=== PATIENT | male | born 1940 | race Caucasian/White ===

== ENCOUNTER → 2016-09-25 | Outpatient (CLI) | payer OTHER ==
[~2016-09-25] VITALS: Ht 170.2 cm; Wt 79.4 kg
[~2016-09-25] MED LIST: ASPIR-LOW81 MG PO; DILTIAZEM 24HR180 MG PO; DOXAZOSIN MESYLA8 MG PO; IRON325 M1 PO; LASIX20 MG PO; LINZESS145 MCG PO; PREDNISONE10 MG PO; PROTONIX20 MG PO; PROTONIX40 MG PO; SPIRIVA1 INHALATI IH; SYMBICORT60 INHALAT IH
== END | disposition home or self-care (01) ==
LOC: AMB 12:42
PROC: 0D568ZZ Destruction of Stomach, Via Natural or Artificial Opening Endoscopic (ICD-10-PCS; principal; 2016-09-25)
DX: I86.4 Gastric varices (principal); I10 Essential (primary) hypertension; J44.9 Chronic obstructive pulmonary disease, unspecified; K21.9 Gastro-esophageal reflux disease without esophagitis
CPT/HCPCS: J3010

== ENCOUNTER 2016-10-24 13:47 | Inpatient (IN) | payer OTHER ==
[2016-10-24] VITALS (10 sets, daily range): BP systolic 142–170; BP diastolic 55–79
[~2016-10-24] VITALS: Ht 170.2 cm; Wt 86.0 kg
[2016-10-24 15:49] LABS: EOSINOPHIL (%) 1.5 % (0-5); EOSINOPHIL COUNT 0.1 K/uL (0-0.3); HEMATOCRIT 24.7 % (38.0-50.0); IMMATURE GRANULOCYTE (%) 0.5 % (0.0-0.7); INSTRUMENT ABS NEUTROPHIL CT 4.7 K/uL; LYMPHOCYTE COUNT 0.6 K/uL (1.0-2.8); MCH 22.1 PG (29.0-34.0); MCHC 28.3 G/DL (30.0-36.0); MCV 77.9 FL (86-99); MEAN PLAT.VOLUME 9.9 uM^3 (9.0-12.4); MONOCYTE (%) 8.8 % (3-12); MONOCYTE COUNT 0.5 K/uL (0-0.8); NEUTROPHIL (%) 78.4 % (45-76); NEUTROPHIL COUNT 4.7 K/uL (1.8-6.4); NRBC (%) 0.3 /100 WBC (0-0); PLATELET COUNT 253 K/uL (156-360); RBC DIS.WIDTH-CV 17.3 % (11.8-14.6); RBC DIS.WIDTH-SD 49.7 % (39-53); RED BLOOD COUNT 3.17 M/uL (4.00-5.50); WHITE BLOOD COUNT 5.9 K/uL (4.1-10.2)
[2016-10-24 16:15] LABS: CHLORIDE 95 mEq/L (99-109); POTASSIUM 4.9 mEq/L (3.7-5.4); SODIUM 136 mEq/L (136-147)
[2016-10-24 16:18] LABS: ANION GAP 13 MEQ/L (2-14); GLUCOSE 201 mg/dL (70-99)
[2016-10-24 16:19] LABS: TOTAL BILIRUBIN 0.3 mg/dL (0.0-1.0)
[2016-10-24 16:20] LABS: ALKALINE PHOSPHATASE 81 IU/L (3-129)
[2016-10-24 16:21] LABS: GFR ESTIMATE (CALCULATED) 52 mL/min/
[2016-10-24 16:22] LABS: UREA NITROGEN (BUN) 22 mg/dL (9-23)
[2016-10-24 16:24] LABS: LIPASE 17 U/L (1.0-51.0)
[2016-10-24] MEDS ORDERED: STOOL SOFTENER100 M1 PO (16:58)
[2016-10-25 00:18] VITALS: BP 172/75
[2016-10-25 00:44] LABS: HEMATOCRIT 26.8 % (38.0-50.0); MCV 79.5 FL (86-99)
[2016-10-25 05:29] LABS: HEMATOCRIT 27.4 % (38.0-50.0); MCV 80.8 FL (86-99)
[2016-10-25 05:58] LABS: ALKALINE PHOSPHATASE 69 IU/L (3-129); ANION GAP 4 MEQ/L (2-14); CHLORIDE 97 MEQ/L (99-109); GFR ESTIMATE (CALCULATED) > 59 mL/min/; POTASSIUM 4.9 MEQ/L (3.7-5.4); SAMPLE HEMOLYSIS CHECK 0; SAMPLE ICTERIC CHECK 0; SAMPLE LIPEMIA CHECK 0; SODIUM 139 MEQ/L (136-147); TOTAL BILIRUBIN 0.4 MG/DL (0.0-1.0); UREA NITROGEN (BUN) 21 mg/dL (9-23)
[2016-10-25 05:59] LABS: GLUCOSE 114 mg/dL (70-99)
[2016-10-25 08:47] VITALS: BP 166/72
[2016-10-25 09:12] LABS: TROP-I INTERPRETATION NEGATIVE; TROPONIN-I 0.03 ng/mL (0.0-0.30)
[2016-10-25 12:22] LABS: HEMATOCRIT 30.1 % (38.0-50.0); MCV 81.1 FL (86-99)
[2016-10-25 15:56] VITALS: BP 157/71
[2016-10-25 17:11] LABS: HEMATOCRIT 29.4 % (38.0-50.0); MCV 80.8 FL (86-99)
[2016-10-25 17:18] LABS: INTER. NORMALIZED RATIO 1.1; PROTHROMBIN TIME 10.7 (9.2-11.2); PTT 26.9 (25-32)
[2016-10-25 23:34] VITALS: BP 161/67
[2016-10-26 06:56] LABS: HEMATOCRIT 29.3 % (38.0-50.0); MCH 23.1 PG (29.0-34.0); MCHC 28.3 G/DL (30.0-36.0); MCV 81.6 FL (86-99); MEAN PLAT.VOLUME 9.3 uM^3 (9.0-12.4); PLATELET COUNT 212 K/uL (156-360); RBC DIS.WIDTH-CV 18.6 % (11.8-14.6); RBC DIS.WIDTH-SD 55.4 % (39-53); RED BLOOD COUNT 3.59 M/uL (4.00-5.50)
[2016-10-26 07:31] VITALS: BP 140/74
[2016-10-26 07:34] LABS: ANION GAP 8 MEQ/L (2-14); CHLORIDE 92 MEQ/L (99-109); GFR ESTIMATE (CALCULATED) > 59 mL/min/; GLUCOSE 90 mg/dL (70-99); POTASSIUM 4.6 MEQ/L (3.7-5.4); SAMPLE HEMOLYSIS CHECK 0; SAMPLE ICTERIC CHECK 0; SAMPLE LIPEMIA CHECK 0; SODIUM 139 MEQ/L (136-147); UREA NITROGEN (BUN) 23 mg/dL (9-23)
[2016-10-26 11:16] VITALS: BP 140/70
[2016-10-26 13:45] LABS: TYPE OF FLUID PLEURAL
[2016-10-26 14:05] LABS: BODY FLUID LDH 89 IU/L
[2016-10-26 14:06] LABS: HEMATOCRIT 31.2 % (38.0-50.0)
[2016-10-26 14:33] LABS: BODY FLUID EOSINOPHILS 0 % (0-25); BODY FLUID RBC'S 2000 /MM^3 (0-100); BODY FLUID WBC'S 344 /MM^3 (0-500); MONONUCLEAR WBC'S 86 %; POLYNUCLEAR WBC'S 14 % (0-25)
[2016-10-26 17:50] LABS: HEMATOCRIT 30.8 % (38.0-50.0); MCV 81.1 FL (86-99)
[2016-10-26 20:09] VITALS: BP 164/79
[2016-10-27] VITALS (14 sets, daily range): BP systolic 133–182; BP diastolic 63–86
[2016-10-27 00:24] LABS: HEMATOCRIT 26.4 % (38.0-50.0); MCV 78.1 FL (86-99)
[2016-10-27 07:02] LABS: HEMATOCRIT 25.5 % (38.0-50.0); MCH 22.9 PG (29.0-34.0); MCHC 29.4 G/DL (30.0-36.0); MEAN PLAT.VOLUME 9.8 uM^3 (9.0-12.4); PLATELET COUNT 201 K/uL (156-360); RBC DIS.WIDTH-CV 18.6 % (11.8-14.6); RBC DIS.WIDTH-SD 52.7 % (39-53); RED BLOOD COUNT 3.27 M/uL (4.00-5.50); WHITE BLOOD COUNT 5.4 K/uL (4.1-10.2)
[2016-10-27 07:31] LABS: ANION GAP ND MEQ/L (2-14); CARBON DIOXIDE (BICARBONATE) > 40.0 MEQ/L (20-31); CHLORIDE 91 MEQ/L (99-109); GFR ESTIMATE (CALCULATED) > 59 mL/min/; GLUCOSE 105 mg/dL (70-99); LACTATE DEHYDROGENASE 118 IU/L (20-246); POTASSIUM 3.9 MEQ/L (3.7-5.4); SAMPLE HEMOLYSIS CHECK 0; SAMPLE ICTERIC CHECK 0; SAMPLE LIPEMIA CHECK 0; SODIUM 137 MEQ/L (136-147); UREA NITROGEN (BUN) 24 mg/dL (9-23)
[2016-10-27 08:36] LABS: BASE EXCESS 16.8 mEq/L (-3 to +3); BICARBONATE 42.7 mEq/L (22-26); CARBOXY HGB 2.1 % (0-5); COMMENTS - BLOOD GASES A+C+; DEVICE NC; O2 FLOW 4 L/MIN; PCO2 60 mm Hg (35-45); PO2 59 mm Hg (80-100); SITE RRA; pH 7.46 (7.35-7.45)
[2016-10-27 08:37] LABS: TOTAL RESP RATE 16 resp/min
[2016-10-27 21:29] LABS: HEMATOCRIT 31.3 % (38.0-50.0); MCV 77.9 FL (86-99)
[2016-10-27 23:29] LABS: BODY FLUID PH 7.9 (())
[2016-10-28] VITALS: BP 170/68
[2016-10-28 00:26] LABS: HEMATOCRIT 33.1 % (38.0-50.0); MCV 77.3 FL (86-99)
[2016-10-28 07:23] VITALS: BP 171/72
[2016-10-28 07:37] LABS: HEMATOCRIT 32.7 % (38.0-50.0); MCV 77.9 FL (86-99)
[2016-10-28 13:09] LABS: HEMATOCRIT 34.5 % (38.0-50.0); MCV 78.1 FL (86-99)
[2016-10-28 15:25] VITALS: BP 144/72
[2016-10-28 18:31] LABS: HEMATOCRIT 34.8 % (38.0-50.0); MCV 77.5 FL (86-99)
[2016-10-28 23:39] VITALS: BP 170/80
[2016-10-29 00:36] LABS: HEMATOCRIT 33.6 % (38.0-50.0); MCV 76.5 FL (86-99)
[2016-10-29 05:58] LABS: HEMATOCRIT 32.6 % (38.0-50.0); MCV 77.1 FL (86-99)
[2016-10-29 07:48] VITALS: BP 177/77
[2016-10-29 11:42] LABS: HEMATOCRIT 34.6 % (38.0-50.0); MCV 78.1 FL (86-99)
[2016-10-29 15:05] VITALS: BP 140/66
[2016-10-29 18:05] LABS: HEMATOCRIT 36.2 % (38.0-50.0); MCV 77.8 FL (86-99)
[2016-10-30] VITALS: BP 165/74
[2016-10-30 00:44] LABS: MCV 77.3 FL (86-99)
[2016-10-30 07:23] LABS: ANION GAP 8 MEQ/L (2-14); CHLORIDE 92 MEQ/L (99-109); GFR ESTIMATE (CALCULATED) 42 mL/min/; GLUCOSE 176 mg/dL (70-99); POTASSIUM 4.1 MEQ/L (3.7-5.4); SAMPLE HEMOLYSIS CHECK 0; SAMPLE ICTERIC CHECK 0; SAMPLE LIPEMIA CHECK 0; SODIUM 133 MEQ/L (136-147); UREA NITROGEN (BUN) 31 mg/dL (9-23)
[2016-10-30 07:40] LABS: HEMATOCRIT 33.9 % (38.0-50.0)
[2016-10-30 07:55] VITALS: BP 157/74
[2016-10-30 11:35] VITALS: BP 165/79
[2016-10-30 13:56] LABS: HEMATOCRIT 35.6 % (38.0-50.0); MCV 78.2 FL (86-99)
[2016-10-30 14:14] LABS: ANION GAP 12 MEQ/L (2-14); CHLORIDE 93 MEQ/L (99-109); GFR ESTIMATE (CALCULATED) 52 mL/min/; GLUCOSE 150 mg/dL (70-99); POTASSIUM 3.8 MEQ/L (3.7-5.4); SAMPLE HEMOLYSIS CHECK 0; SAMPLE ICTERIC CHECK 0; SAMPLE LIPEMIA CHECK 0; SODIUM 136 MEQ/L (136-147); UREA NITROGEN (BUN) 30 mg/dL (9-23)
[2016-10-30 16:50] VITALS: BP 149/76
[2016-10-31 00:35] LABS: HEMATOCRIT 31.5 % (38.0-50.0); MCV 78.2 FL (86-99)
[2016-10-31 01:08] VITALS: BP 154/74
[2016-10-31 07:23] LABS: HEMATOCRIT 32.6 % (38.0-50.0); MCH 23.9 PG (29.0-34.0); MCHC 30.7 G/DL (30.0-36.0); MEAN PLAT.VOLUME 9.6 uM^3 (9.0-12.4); PLATELET COUNT 213 K/uL (156-360); RBC DIS.WIDTH-CV 19.7 % (11.8-14.6); RBC DIS.WIDTH-SD 54.2 % (39-53); WHITE BLOOD COUNT 5.6 K/uL (4.1-10.2)
[2016-10-31 07:29] LABS: ANION GAP 8 MEQ/L (2-14); CHLORIDE 95 MEQ/L (99-109); POTASSIUM 3.9 MEQ/L (3.7-5.4); SAMPLE HEMOLYSIS CHECK 0; SAMPLE ICTERIC CHECK 0; SAMPLE LIPEMIA CHECK 0; SODIUM 136 MEQ/L (136-147)
[2016-10-31 07:35] LABS: GFR ESTIMATE (CALCULATED) 57 mL/min/; GLUCOSE 142 mg/dL (70-99); UREA NITROGEN (BUN) 30 mg/dL (9-23)
[2016-10-31 08:17] VITALS: BP 164/72
[2016-10-31 08:17] LABS: RED BLOOD COUNT 4.18 M/uL (4.00-5.50)
[2016-10-31 12:45] LABS: HEMATOCRIT 35.3 % (38.0-50.0); MCV 79.1 FL (86-99)
[2016-10-31] MEDS ORDERED: AMOX TR-K CLV1 EAC4 PO (14:51)
[2016-10-31] MEDS ORDERED: AMLODIPINE BESYL5 MG PO (14:52)
[2016-10-31] MEDS ORDERED: THEOPHYLLINE400 MG PO (14:52)
[2016-10-31] MEDS ORDERED: PREDNISONE10 MG PO (14:54)
[2016-10-31 15:13] VITALS: BP 138/67
== END 2016-10-31 17:28 | disposition home or self-care (01) | DRG 811 ==
LOC: EME 13:47 → EDOF 18:41 → 5SOUTH 18:41 → EME 10-26 16:45 → 5SOUTH 10-31 17:28
PROVIDERS: Emergency Medicine; Internal Medicine; Internal Medicine Gastroenterology; Nurse Practitioner Adult Health; Physician Assistant Medical; Radiology Diagnostic Radiology
DX: D62 Acute posthemorrhagic anemia (principal); K31.811 Angiodysplasia of stomach and duodenum with bleeding; K25.9 Gastric ulcer, unspecified as acute or chronic, without hemorrhage or perforation; J44.1 Chronic obstructive pulmonary disease with (acute) exacerbation; J44.0 Chronic obstructive pulmonary disease with (acute) lower respiratory infection; J18.9 Pneumonia, unspecified organism; N17.9 Acute kidney failure, unspecified; J90 Pleural effusion, not elsewhere classified; I10 Essential (primary) hypertension; N40.0 Benign prostatic hyperplasia without lower urinary tract symptoms; K21.9 Gastro-esophageal reflux disease without esophagitis; Z66 Do not resuscitate; Z86.73 Personal history of transient ischemic attack (TIA), and cerebral infarction without residual deficits; Z87.891 Personal history of nicotine dependence; Z95.828 Presence of other vascular implants and grafts
CPT/HCPCS: 36415; 36600; 71010; 71020; 71275; 80048; 80048 91; 80053; 82040; 82803; 82945; 83615; 83615 91; 83690; 83986 90; 84075; 84157; 84484; 85014; 85018; 85025; 85025 91; 85027; 85610; 85730; 86850; 86900; 86901; 86920; 87070; 87075; 87116; 87205; 87206; 88108; 89051; 93005; 93306; 93971; 94640; 94640 76; 94799; 99202; 99281; 99285; C9113; J0696; J1940; J2405; J7040; J7050; J7120; J7512; P9016; P9040

== ENCOUNTER 2016-12-30 20:10 | Inpatient (IN) | payer OTHER ==
[~2016-12-30] VITALS: Ht 175.3 cm; Wt 80.6 kg
[~2016-12-30 20:10] MED LIST changes: +AMLODIPINE BESYL5 MG PO; +AMOX TR-K CLV1 EAC4 PO; +STOOL SOFTENER100 M1 PO; +THEOPHYLLINE400 MG PO
[2016-12-30 21:00] LABS: HEMATOCRIT 24.9 % (38.0-50.0); MCH 26.5 PG (29.0-34.0); MCHC 30.5 G/DL (30.0-36.0); MCV 86.8 FL (86-99); MEAN PLAT.VOLUME 9.8 uM^3 (9.0-12.4); PLATELET COUNT 198 K/uL (156-360); RBC DIS.WIDTH-CV 21.1 % (11.8-14.6); RBC DIS.WIDTH-SD 66.7 % (39-53); RED BLOOD COUNT 2.87 M/uL (4.00-5.50); WHITE BLOOD COUNT 5.9 K/uL (4.1-10.2)
[2016-12-30 21:07] LABS: EOSINOPHIL (%) 1.4 % (0-5); EOSINOPHIL COUNT 0.1 K/uL (0-0.3); IMMATURE GRANULOCYTE (%) 0.3 % (0.0-0.7); INSTRUMENT ABS NEUTROPHIL CT 4.6 K/uL; LYMPHOCYTE COUNT 0.5 K/uL (1.0-2.8); MONOCYTE (%) 10.8 % (3-12); MONOCYTE COUNT 0.6 K/uL (0-0.8); NEUTROPHIL (%) 78.2 % (45-76); NEUTROPHIL COUNT 4.6 K/uL (1.8-6.4)
[2016-12-30 21:09] LABS: CHLORIDE 94 mEq/L (99-109); POTASSIUM 3.9 mEq/L (3.7-5.4); SODIUM 134 mEq/L (136-147)
[2016-12-30 21:10] LABS: GLUCOSE 132 mg/dL (70-99)
[2016-12-30 21:12] LABS: ANION GAP 4 MEQ/L (2-14)
[2016-12-30 21:14] LABS: GFR ESTIMATE (CALCULATED) > 59 mL/min/
[2016-12-30 21:15] LABS: UREA NITROGEN (BUN) 21 mg/dL (9-23)
[2016-12-30 21:20] LABS: INTER. NORMALIZED RATIO 1.1; PROTHROMBIN TIME 11.1 (9.2-11.2); PTT 28.7 (25-32)
[2016-12-30 21:21] LABS: TROP-I INTERPRETATION NEGATIVE; TROPONIN-I 0.01 ng/mL (0.0-0.30)
[2016-12-30] MEDS ORDERED: COMBIVENT RESPIM4 GM IH (23:54)
[2016-12-30] MEDS ORDERED: VENTOLIN HFA18 GM IH (23:55)
[2016-12-31] VITALS (16 sets, daily range): BP systolic 127–189; BP diastolic 58–91
[2016-12-31 08:00] LABS: TROP-I INTERPRETATION NEGATIVE; TROPONIN-I 0.04 ng/mL (0.0-0.30)
[2016-12-31 09:12] LABS: ANION GAP 8 MEQ/L (2-14); CHLORIDE 98 MEQ/L (99-109); GFR ESTIMATE (CALCULATED) > 59 mL/min/; GLUCOSE 118 mg/dL (70-99); POTASSIUM 4.2 MEQ/L (3.7-5.4); SAMPLE HEMOLYSIS CHECK 0; SAMPLE ICTERIC CHECK 0; SAMPLE LIPEMIA CHECK 0; SODIUM 140 MEQ/L (136-147); UREA NITROGEN (BUN) 17 mg/dL (9-23)
[2016-12-31 09:49] LABS: INTERNAL CONTROL VALID? YES
[2016-12-31 13:20] LABS: HEMATOCRIT 30.5 % (38.0-50.0); MCH 27.1 PG (29.0-34.0); MCHC 30.8 G/DL (30.0-36.0); MCV 87.9 FL (86-99); PLATELET COUNT 204 K/uL (156-360); RBC DIS.WIDTH-CV 19.8 % (11.8-14.6); RBC DIS.WIDTH-SD 63.4 % (39-53); WHITE BLOOD COUNT 5.5 K/uL (4.1-10.2)
[2016-12-31 13:32] LABS: RED BLOOD COUNT 3.47 M/uL (4.00-5.50)
[2016-12-31 13:33] LABS: CHLORIDE 96 mEq/L (99-109); POTASSIUM 3.8 mEq/L (3.7-5.4); SODIUM 138 mEq/L (136-147)
[2016-12-31 13:36] LABS: ANION GAP 9 MEQ/L (2-14)
[2016-12-31 13:37] LABS: GLUCOSE 193 mg/dL (70-99)
[2016-12-31 13:39] LABS: GFR ESTIMATE (CALCULATED) > 59 mL/min/; UREA NITROGEN (BUN) 16 mg/dL (9-23)
[2017-01-01] VITALS (7 sets, daily range): BP systolic 148–176; BP diastolic 70–77
[2017-01-01 07:45] LABS: HEMATOCRIT 33.9 % (38.0-50.0); MCH 26.8 PG (29.0-34.0); MCHC 30.4 G/DL (30.0-36.0); MCV 88.1 FL (86-99); PLATELET COUNT 234 K/uL (156-360); RBC DIS.WIDTH-CV 19.4 % (11.8-14.6); RBC DIS.WIDTH-SD 62.8 % (39-53); RED BLOOD COUNT 3.85 M/uL (4.00-5.50); WHITE BLOOD COUNT 4.1 K/uL (4.1-10.2)
[2017-01-01 07:59] LABS: TROP-I INTERPRETATION NEGATIVE; TROPONIN-I 0.01 ng/mL (0.0-0.30)
[2017-01-01 08:26] LABS: ANION GAP 7 MEQ/L (2-14); CHLORIDE 97 MEQ/L (99-109); GFR ESTIMATE (CALCULATED) > 59 mL/min/; GLUCOSE 170 mg/dL (70-99); SAMPLE HEMOLYSIS CHECK 0; SAMPLE ICTERIC CHECK 0; SAMPLE LIPEMIA CHECK 0; SODIUM 140 MEQ/L (136-147); UREA NITROGEN (BUN) 15 mg/dL (9-23)
[2017-01-01 08:27] LABS: POTASSIUM 4.6 MEQ/L (3.7-5.4)
[2017-01-02 07:13] LABS: HEMATOCRIT 32.9 % (38.0-50.0); MCH 27.2 PG (29.0-34.0); MCHC 30.7 G/DL (30.0-36.0); MCV 88.7 FL (86-99); MEAN PLAT.VOLUME 10.2 uM^3 (9.0-12.4); PLATELET COUNT 247 K/uL (156-360); RBC DIS.WIDTH-CV 19.5 % (11.8-14.6); RBC DIS.WIDTH-SD 64.1 % (39-53); RED BLOOD COUNT 3.71 M/uL (4.00-5.50); WHITE BLOOD COUNT 5.9 K/uL (4.1-10.2)
[2017-01-02 07:14] VITALS: BP 176/72
[2017-01-02 07:40] LABS: ANION GAP 8 MEQ/L (2-14); CHLORIDE 97 MEQ/L (99-109); GFR ESTIMATE (CALCULATED) > 59 mL/min/; GLUCOSE 174 mg/dL (70-99); POTASSIUM 4.2 MEQ/L (3.7-5.4); SAMPLE HEMOLYSIS CHECK 0; SAMPLE ICTERIC CHECK 0; SAMPLE LIPEMIA CHECK 0; SODIUM 138 MEQ/L (136-147); UREA NITROGEN (BUN) 21 mg/dL (9-23)
[2017-01-02 15:16] VITALS: BP 161/72
[2017-01-03 00:22] VITALS: BP 166/77
[2017-01-03 07:23] LABS: EOSINOPHIL (%) 0 % (0-5); HEMATOCRIT 32.3 % (38.0-50.0); IMMATURE GRANULOCYTE (%) 0.8 % (0.0-0.7); IMMATURE GRANULOCYTE COUNT 0.1 K/uL; INSTRUMENT ABS NEUTROPHIL CT 6.7 K/uL; LYMPHOCYTE COUNT 0.2 K/uL (1.0-2.8); MCH 27.1 PG (29.0-34.0); MCHC 30.3 G/DL (30.0-36.0); MCV 89.2 FL (86-99); MEAN PLAT.VOLUME 10.1 uM^3 (9.0-12.4); MONOCYTE (%) 3.8 % (3-12); MONOCYTE COUNT 0.3 K/uL (0-0.8); NEUTROPHIL (%) 93.2 % (45-76); NEUTROPHIL COUNT 6.7 K/uL (1.8-6.4); PLATELET COUNT 248 K/uL (156-360); RBC DIS.WIDTH-CV 19.5 % (11.8-14.6); RBC DIS.WIDTH-SD 64.8 % (39-53); RED BLOOD COUNT 3.62 M/uL (4.00-5.50); WHITE BLOOD COUNT 7.2 K/uL (4.1-10.2)
[2017-01-03 08:01] LABS: ANION GAP 6 MEQ/L (2-14); CHLORIDE 97 MEQ/L (99-109); GFR ESTIMATE (CALCULATED) > 59 mL/min/; GLUCOSE 177 mg/dL (70-99); POTASSIUM 4.2 MEQ/L (3.7-5.4); SAMPLE HEMOLYSIS CHECK 0; SAMPLE ICTERIC CHECK 0; SAMPLE LIPEMIA CHECK 0; SODIUM 136 MEQ/L (136-147); UREA NITROGEN (BUN) 25 mg/dL (9-23)
[2017-01-03 08:06] VITALS: BP 171/76
[2017-01-03 15:57] VITALS: BP 184/82
[2017-01-03 22:53] VITALS: BP 156/69
[2017-01-04 06:37] LABS: EOSINOPHIL (%) 0 % (0-5); HEMATOCRIT 29.9 % (38.0-50.0); IMMATURE GRANULOCYTE (%) 1.2 % (0.0-0.7); IMMATURE GRANULOCYTE COUNT 0.1 K/uL; INSTRUMENT ABS NEUTROPHIL CT 5.8 K/uL; LYMPHOCYTE COUNT 0.1 K/uL (1.0-2.8); MCH 28.1 PG (29.0-34.0); MCHC 31.8 G/DL (30.0-36.0); MCV 88.5 FL (86-99); MEAN PLAT.VOLUME 10.3 uM^3 (9.0-12.4); MONOCYTE (%) 7.6 % (3-12); MONOCYTE COUNT 0.5 K/uL (0-0.8); NEUTROPHIL COUNT 5.8 K/uL (1.8-6.4); PLATELET COUNT 221 K/uL (156-360); RBC DIS.WIDTH-CV 19.6 % (11.8-14.6); RBC DIS.WIDTH-SD 63.7 % (39-53); RED BLOOD COUNT 3.38 M/uL (4.00-5.50); WHITE BLOOD COUNT 6.5 K/uL (4.1-10.2)
[2017-01-04 07:01] VITALS: BP 159/72
[2017-01-04 07:04] LABS: ANION GAP 6 MEQ/L (2-14); CHLORIDE 97 MEQ/L (99-109); GFR ESTIMATE (CALCULATED) > 59 mL/min/; GLUCOSE 189 mg/dL (70-99); POTASSIUM 4.5 MEQ/L (3.7-5.4); SAMPLE HEMOLYSIS CHECK 0; SAMPLE ICTERIC CHECK 0; SAMPLE LIPEMIA CHECK 0; SODIUM 136 MEQ/L (136-147); UREA NITROGEN (BUN) 31 mg/dL (9-23)
[2017-01-04] MEDS ORDERED: DOXYCYCLINE HY100 M3 PO (13:45)
[2017-01-04] MEDS ORDERED: CIPROFLOXACIN500 M1 PO (13:45)
[2017-01-04] MEDS ORDERED: PREDNISONE20 MG PO (13:46)
[2017-01-04] MEDS ORDERED: PANTOPRAZOLE SO40 MG PO (13:46)
[2017-01-04] MEDS ORDERED: AMLODIPINE BESYL5 MG PO (13:47)
== END 2017-01-04 14:49 | disposition home or self-care (01) | DRG 189 ==
LOC: EME → EDBD 20:10 → EME 20:10 → EDOF 23:01 → 5EAST 23:01 → UNDODEPER 12-31 01:32 → 5EAST 12-31 01:37
PROVIDERS: Emergency Medicine; Hospitalist; Internal Medicine
PROC: 30233N1 Transfusion of Nonautologous Red Blood Cells into Peripheral Vein, Percutaneous Approach (ICD-10-PCS; principal; 2016-12-31)
DX: J96.22 Acute and chronic respiratory failure with hypercapnia (principal); J96.21 Acute and chronic respiratory failure with hypoxia; J18.9 Pneumonia, unspecified organism; J44.1 Chronic obstructive pulmonary disease with (acute) exacerbation; I10 Essential (primary) hypertension; I71.4 Abdominal aortic aneurysm, without rupture; I27.2 Other secondary pulmonary hypertension; E87.2 Acidosis; I63.9 Cerebral infarction, unspecified; J91.8 Pleural effusion in other conditions classified elsewhere; K21.9 Gastro-esophageal reflux disease without esophagitis; D62 Acute posthemorrhagic anemia; Q27.33 Arteriovenous malformation of digestive system vessel; D50.0 Iron deficiency anemia secondary to blood loss (chronic); K92.1 Melena; Y95 Nosocomial condition; Z86.73 Personal history of transient ischemic attack (TIA), and cerebral infarction without residual deficits; Z99.81 Dependence on supplemental oxygen; Z87.11 Personal history of peptic ulcer disease; Z87.891 Personal history of nicotine dependence
CPT/HCPCS: 71010; 71020; 71250; 80048; 80048 91; 80202; 84484; 85025; 85027; 85610; 85730; 86900; 86901; 86920; 87040; 87070; 87205; 87449; 93005; 93971; 94640; 94640 76; 94799; 99202; 99281; 99285; C9113; J0692; J2920; J3370; J7030; J7050; J7512; P9016